=== PATIENT | female | born 1965 | race Caucasian/White ===

== ENCOUNTER → 2019-03-25 10:01 | Outpatient (CLI) | payer OTHER, SELFPAY ==
[2019-03-25 10:31] LABS: Hematocrit 43.7 % (36-46); Hemoglobin 14.4 g/dL (12.0-16.0); Mean Corpuscular HGB Conc 32.9 % (30-36); Mean Corpuscular Hemoglobin 29.9 PG (26-34); Platelet Count 284 X10^3/uL (150-400); Red Cell Distribution Width 13.7 % (11.6-14.8); White Blood Cell Count 6.7 X10^3/uL (4.5-11.0)
[2019-03-25 11:04] LABS: BUN Creatinine Ratio 26.7 (6-22); Blood Urea Nitrogen 16 mg/dL (7-17); Calcium 10.2 mg/dL (8.4-10.2); Carbon Dioxide 30 mmol/L (22-32); Chloride 102 mmol/L (98-107); Estimated Glomerular Filt Rate > 60.0 mL/min (>60); Glucose 102 mg/dL (70-100); HEMOLYSIS < 15 (0-50); Sodium 140 mmol/L (137-145)
== END ==
PROVIDERS: PCP Family Medicine; Visit Provider Orthopaedic Surgery
DX: Z01.818 Encounter for other preprocedural examination (principal)
CPT/HCPCS: 36415; 80048; 85027; 93005

== ENCOUNTER 2019-04-27 11:09 | Inpatient (IN) | payer OTHER, SELFPAY ==
[2019-04-20 10:01] VITALS: BMI 42.7
[2019-04-27] VITALS (15 sets, daily range): BP systolic 102–125; BP diastolic 57–83; PULSE 72–89; RESP 10–16; TEMP 35.9–37.2; O2SAT 94–97; BMI 41.4
--- NOTE | 2019-04-27 | DI.RAD.S_ITS ---
PROCEDURE: XR LUMBAR SPINE 2-3V INDICATIONS: L5-S1 Laminectomy and instrumented fusion bone graft TECHNIQUE: 2 views of the lumbar spine were acquired. COMPARISON: None. FINDINGS: Bones: Postoperative appearance is documented by digital acquisition imaging. Posterior transverse pedicle screws and 2 vertical fixation rods are seen supplemented with intervertebral disc cage prosthesis, spanning the L5-S1 level of the lumbosacral spine. Soft tissues: Overlying bowel gas pattern is normal. No suspicious soft tissue calcifications. IMPRESSION: Normal postoperative alignment after posterior fusion and interbody disc cage prosthesis. Dictated by: Daniele Tejeda M.D. on 04/27/2019 at 16:27 Approved by: Daniele Tejeda M.D. on 04/27/2019 at 16:28
[2019-04-27] MEDS: LACTATED RINGERS 1,000 ML 42 ML IV ×2 (11:52→15:49)
--- NOTE | 2019-04-27 12:02 | SUR.PREOP ---
pt. has what appears to be a heat rash on mid center back, denies any symptoms.
--- NOTE | 2019-04-27 12:04 | PM.PREOP ---
Pre-operative Note Interval Note History & Physical reviewed/Exam performed by Physician: Yes Changes to H&P: No
--- NOTE | 2019-04-27 12:15 | P.OP_ITS ---
Operative Date/Time/Diagnoses Date of procedure: 04/27/19 Time of procedure: 15:56 Pre-op diagnosis: Lumbar stenosis with radiculopathy Morbid obesity with BMI greater than 40 Post-op diagnosis: same Procedure & Clinicians Procedure: L5S1 TLIF (post/post innerbody fusion) with cage L5S1 laminectomy L5S1 screws icbg microscope Same procedure as scheduled: Yes Indications: [age] year old female with intractable pain from lumbar stenosis. They had failed conservative management and requested operative intervention. Risks and benefits of surgery were discussed and appropriate consents were obtained. Surgeon: Johnnie Salazar Mine Exploration Engineer: Norma Ahumada Anesthesia Type: General Operative Notes Findings: None Closure Type: primary Specimen(s): none sent Prosthetic devices, grafts, tissues, transplants, or devices: NuVasive MAS Reline screws Globus Rise cage Applied: catheter Estimated Blood Loss (mL): 20 Blood products transfused: none Procedure in detail: The patient was brought to the operating room and intubated on the table. A time-out was performed. They were then rolled over to the well- padded Niko table in the prone position. Preoperative antibiotics were given. The back was prepped and draped in the standard sterile fashion. Using fluoroscopy, a 4 cm longitudinal incision was made to the left of the midline. We used Bovie to come down to and split the lumbodorsal fascia. Using fluoroscopy and monitoring, we then percutaneously placed Jamshidi needles down the pedicles of L5 and S1 on the left side. These were changed out to guidewires and then we tapped and then placed the NuVasive MAS Reline screw shanks. We then opened up the retractors and used Bovie to clear up the posterolateral gutter as well as medially along the lamina to the spinous processes. A bur was used to decorticate the transverse processes. We brought in the microscope. Using a combination of bur and Kerrison rongeurs, a laminectomy was performed from the left side. We cleared over past the midline and carefully depressed the dura until we were able to decompress the opposite side. We cleared out the neural foramen, requiring facetectomy. This completed the laminectomy at L5-S1. This was separate and distinct from the TLIF approach as we were decompressing the canal and the nerves. We then began the TLIF prep. A complete facetectomy was performed on this side at L5-S1. We carefully cleaned up the remainder of the foramen until we could easily retract the exiting root as well as clearing medially below the dura and expose the disc space. The disc was prepped with bipolar and then an annulotomy was performed. We performed a diskectomy using a combination of paddles, jerri, pituitaries, and curettes. We distracted the disc using a paddle and locked the retractor in an open position. We then filled the disc space with Osteocel bone graft. We then placed the globus Rise cage under fluoroscopy and then filled this in with more bone graft. The distraction on the retractor was released to compress down. This completed the posterior interbody fusion portion of the TLIF at L5-S1. We then placed the screw heads, kofi, and locked down the set screws. The wound was copiously irrigated. A small stab incision was made over the PSIS. We used a Jamshidi needle to aspirate several mL of bone marrow from the pelvis. This was mixed with the remaining Osteocel and combined with all of the locally harvested bone graft and placed in the posterolateral gutter for the posterior fusion of the TLIF at L5- S1. We then went to the opposite side. Again using fluoroscopy, a 3 cm incision was made and Bovie was used to come down to split the fascia. Using neural monitoring and fluoroscopy, Jamshidi needles were advanced down the pedicles of L5 and S1 on the right side. These were switched over guidewires, tapped, and screws placed. We then placed a kofi and locked the set screws on this side. The wound was irrigated. The fascia was closed. Vancomycin powder was placed in the wounds. The superficial and skin were closed. A sterile dressing was placed. The patient was then rolled over extubated and brought to recovery room without complications. Please note that there is increased complexity due to the patient's morbid obesity. We were using 90 mm retractor blades which greatly limited our ability to manipulate through the retractor system as well as greatly increased radiation to be able to visualize and much more complexity trying to place the screws. This added a good 45-60 minutes additional time as well as complexity. Complications: none Condition: stable Disposition: PACU Plan for aftercare: Inpatient. Up with physical therapy.
--- NOTE | 2019-04-27 12:37 | SUR.OPER ---
Prone on spine table, head in foam head support, padded chest and pelvic supports, gel pad at knees, lower legs supported by pillows; nipples, genitalia and toes free of pressure, arms secured on foam padded arm boards at <90 degrees abduction. Tape over blanket at thigh secured to table.
[2019-04-27] MEDS: CEFAZOLIN VIAL 3 GM in SODIUM CHLORIDE 0.9% 100 ML 200 ML IV (12:55)
[2019-04-27] MEDS: VANCOMYCIN 1,000 MG VIAL 1000 MG TOP (14:02)
[2019-04-27] MEDS: SODIUM CHLORIDE 0.9% 1,000 ML, GENTAMICIN 80 MG IRR (14:03)
[2019-04-27] MEDS: THROMBIN (RECOMBINANT) 5,000 UNIT VIAL 5000 UNIT TOP (14:05)
[2019-04-27] MEDS: BUPIVACAINE 0.5% (PF) 20 ML, BUPIVACAINE LIPOSOME 266 MG INJ (15:34)
[2019-04-27] MEDS: HYDROMORPHONE 2 MG INJ 0.5 MG IV (16:28)
--- NOTE | 2019-04-27 16:40 | SUR.PHASEI ---
Stable PACU stay, pt arrived awake, c/o small amount of pain, pain meds given when pt turned on side to access dressing.
[2019-04-27] MEDS: LACTATED RINGERS 1,000 ML 125 ML IV (17:51)
[2019-04-27] MEDS: CELECOXIB 200 MG CAPSULE 400 MG PO (17:51)
[2019-04-27] MEDS: hydroCHLOROthiazide 25 MG TABLET PO (17:52)
[2019-04-27] MEDS: LISINOPRIL 20 MG TABLET PO (17:52)
[2019-04-27] MEDS: CEFAZOLIN 2 GM/100 ML FROZ.PIGGY IV (19:19)
[2019-04-27] MEDS: levETIRAcetam 250 MG TABLET 500 MG PO (20:53)
[2019-04-27] MEDS: HYDROCODONE/ACET 5/325 TABLET 1 TAB PO (20:54)
[2019-04-27] MEDS: PHENYTOIN ER 100 MG CAPSULE 300 MG PO (20:54)
[2019-04-27] MEDS: SENNOSIDES 8.6 MG TABLET 17.2 MG PO (20:54)
[2019-04-27] MEDS: DOCUSATE 100 MG CAPSULE PO (20:54)
[2019-04-27] MEDS: CELECOXIB 200 MG CAPSULE PO (20:54)
--- NOTE | 2019-04-27 22:50 | PC.NURSE ---
Pt post op back surgery without any issues. VSS. Awake and alert. Salcedo draining clear yellow urine. Gauze dressing on lower back clean dry and intact. Scds in place.
--- NOTE | 2019-04-28 00:09 | PC.NURSE ---
Addendum entered by Dian Michelle R.N. 04/28/19 06:32: Complains now of 5/10 back pain; medicated with Vicodin. Addendum entered by Dian Michelle R.N. 04/28/19 05:11: Slept at intervals. Repositioned onto back 2h ago and now declines to turn stating she is comfortable. States pain is 3/10 but declines offer of pain medication. Original Note: Patient is alert and oriented. Breath sounds diminished but CTA with RA sat of 94%. HRR. Denies nausea. BT present but denies flatus. Indwelling catheter is patent. Able to assist to reposition onto side. Has rash on mid back which she states was present pre-op and denies itching. Dressing to back is CDI; steristrip to left lower corner of dressing with small amount of bright red blood. At shift change stated pain was a dull ache at incisional area but now feels good after repositioning onto side. CMS is intact although has chronic numbness in left LE to knee. Wearing bilateral foot SCD's. Fall risk score is moderate; bed alarm is activated. Has not yet been out of bed since return from surgery.
[2019-04-28] MEDS: LACTATED RINGERS 1,000 ML 125 ML IV (01:42)
[2019-04-28] MEDS: CEFAZOLIN 2 GM/100 ML FROZ.PIGGY IV (02:45)
[2019-04-28 05:09] VITALS: BP 101/50; PULSE 78; RESP 17; TEMP 37; O2SAT 96
[2019-04-28] MEDS: HYDROCODONE/ACET 5/325 TABLET 1 TAB PO ×3 (06:26→18:41)
[2019-04-28 06:36] LABS: Hematocrit 39.5 % (36-46); Hemoglobin 13.2 g/dL (12.0-16.0)
--- NOTE | 2019-04-28 07:52 | PM.PNPO.1 ---
Subjective Date Patient Seen: 04/28/19 Time Patient Seen: 07:53 Interval history: She is doing well. Pain 2/10 at rest. No more hip or leg pain. Exam Vital Signs (past 8 hours): - 04/28/19 05:09 Temperature 98.6 F Pulse Rate 78 Respiratory Rate 17 Blood Pressure 101/50 L Pulse Oximetry 96 Oxygen Delivery Method Room Air Oxygen Flow Rate 0 Const Orientation: alert and oriented x3 Back/Spine/Pelvis Other: CDI. 5/5 motor both lower extremities. Objective Labs Result Diagrams: 04/28/19 06:22 Labs: Laboratory Results - last 24 hr 04/28/19 06:22 Hgb 13.2 Hct 39.5 Assessment & Plan Post-op Postoperative Procedures Operation Date: 04/27/19 13:15 Actual Procedures Side Surgeon p L5S1 laminectomy and instrumented fusion bone graft Johnnie Salazar MD Overall she is doing very well. Mobilize with therapy. Anticipate discharge home in the next 1-2 days. Quality VTE Deep Vein Thrombosis/Pulmonary Embolism Present on Admission: No
[2019-04-28 09:20] VITALS: BP 99/57; PULSE 84; RESP 19; TEMP 36.7; O2SAT 95
[2019-04-28] MEDS: PHENYTOIN ER 100 MG CAPSULE 300 MG PO ×2 (09:22→21:04)
[2019-04-28] MEDS: DOCUSATE 100 MG CAPSULE PO ×2 (09:22→21:04)
[2019-04-28] MEDS: CELECOXIB 200 MG CAPSULE PO ×2 (09:22→21:04)
[2019-04-28] MEDS: levETIRAcetam 250 MG TABLET 500 MG PO ×2 (09:22→21:04)
[2019-04-28] MEDS: SODIUM CHLORIDE 0.9% FLUSH 10 ML IV ×2 (09:23→21:04)
--- NOTE | 2019-04-28 10:17 | OT.IP.EVAL ---
Current Diagnoses Morbid (severe) obesity due to excess calories (04/27/19) Spinal stenosis, lumbar region with neurogenic claudication (04/27/19) Strain of muscle, fascia and tendon of lower back, subsequent encounter (04/27/19) Surgery Performed Operation Date: 04/27/19 13:15 Actual Procedures p L5S1 laminectomy and instrumented fusion bone graft - Johnnie Salazar MD Past Medical History (Last Updated 04/20/19 @ 10:23 by Alyx Cabrera RN) Arthritis (Acute) BCC (basal cell carcinoma) (Acute) Brain aneurysm (Acute ~05/2003) HTN (hypertension) (Acute) Left hip pain (Acute) Seizures (Acute) Stroke (Acute ~2002) Thyroid cyst (Acute ~03/2019) Surgical History (Last Updated 04/20/19 @ 10:23 by Alyx Cabrera RN) H/O right wrist surgery (Acute) History of (Acute) History of bilateral tubal ligation (Acute) History of right cataract extraction (Acute ~09/2017) Hx of craniotomy (Acute ~06/2003) Occupational Therapy Inpatient Evaluation/Re-Eval M1 PT/OT-IP Prior Functional Status Start: 04/28/19 08:13 Freq: NEEDED Status: Active Protocol: Document 04/28/19 10:17 MARIA VICTORIA (Rec: 04/28/19 16:34 MARIA VICTORIA [id number]) Medical Review Prior Functional Status Medical History Reviewed Yes Diet/Fluid Consistency Regular Communication WNL Mobility and Gait Pt independent with mobility at home and in community without a device. She report constant soreness in low back and LLE weakness, as well as difficulty with climbing stairs. She was able to do gardening 1x/week. Activities of Daily Living and IADL's Pt independent with ADLs, IADLS, drives. No DME used. Prior Functional Level (Other details) Spouse is retired and can provide 24 hr assist at d/c. Son also home from college until May 3. Social History Household Members spouse children Living Arrangements House Number of Floors (Floors) One Floor Number of Stairs To Enter/Railing? 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 , she can use plastic lawn chair in shower if needed M2 OT-IP Current Condition Start: 04/28/19 16:18 Freq: Status: Active Protocol: Document 04/28/19 10:17 PJM (Rec: 04/28/19 16:34 PJM [id number]) Occupational Therapy Current Condition Current Condition Evaluation Date 04/28/19 Treatment Diagnosis decreased kota care, mobility s /p L5-S1 TLIF Diagnosis Onset Date 04/27/19 Post Operative Precautions Lumbar Precautions Log Roll No Twisting Limit Bending Lifting Restriction of 10 lbs Gait Belt above Incisional Area M3 OT- IP Subjective and Pain Start: 04/28/19 16:18 Freq: Status: Active Protocol: Document 04/28/19 10:17 PJM (Rec: 04/28/19 16:34 PJM [id number]) OT- Subjective Occupational Therapy Visit Type Type Initial Evaluation Visit Start Time 10:42 Visit Stop Time 10:17 Total Visit Minutes 35 Occupational Therapy Visit Comments Patient Comments I feel okay today. Patient/Caregiver Goals to return to work in May OT Pain Assessment Pain When Pain Assessed After Treatment Pain Present Pain Present Pain Reported Location Lower Back Intensity 4 Scale Used Numeric (1 - 10) Description Aching Acute Pain Behaviors Guarding Management Techniques Distraction Timing of Activity with Medications M4 OT- IP ADL's Start: 04/28/19 16:18 Freq: Status: Active Protocol: Document 04/28/19 10:17 PJM (Rec: 04/28/19 16:34 PJ [id number]) OT [id number] General Evaluation Self-Feeding Ability Independent OT ADL-Grooming General Evaluation Grooming Ability Independent Comments OT Grooming Comments after set up in chair OT ADL-Oral Care General Eval Oral Care Ability Standby Assistance Comments Oral Care Comments after set up in chair OT ADL-Dressing General Eval Lower Body Dressing Ability Maximum Assistance Areas Needing Assistance Pants/Shorts Socks Shoes Comments OT Dressing Comments began education re: adapted ADL techniques, pt plans to wear sun dresses, does not wear socks so declines sock aid, will wear slip on shoes OT ADL-Toileting Comments OT Toileting Comments did not occur this session, just got turner out, provided education re: body mechanics OT ADL-Bathing Devices Bathing Equipment Long Handled Sponge or [place] Shower Chair with Arms Comments OT Bathing Comments to be assessed as activity [place]rance improves, provided education re: body mechanics, pt will obtain long bath sponge M5 OT- IP IADL's Start: 04/28/19 16:18 Freq: Status: Active Protocol: Document 04/28/19 10:17 PJM (Rec: 04/28/19 16:34 PJ [id number]) OT-Instrumental Activities of Daily Living Deficits IADL Deficits Identified Deficits Home Safety Awareness Awareness of Need for Assistance at Home Good Awareness Ability to Problem Solve Emergency Able to Problem Solve Situations Medication Management Medication Management No Deficits Identified Money Management Money Management No Deficits Identified Meal Preparation Meal Preparation Caregiver Provides Assist Meal Preparation Comments family to assist until pt able 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 Caregiver Provides Assist 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 Comments family to assist until pt able Driving Driving Caregiver Provides Assist Driving Comments family to assist until pt able M6 OT- IP Functional Cognition Start: 04/28/19 16:18 Freq: Status: Active Protocol: Document 04/28/19 10:17 PJM (Rec: 04/28/19 16:34 [email or web address] [id number]) Cognitive Factors Limiting Selfcare Function Cognitive Ability Level of Alertness Alert Attention Span Ability Capable of Focused Attention Capable of Sustained Attention Ability to Follow Commands Able to Follow One Step Commands Able to Follow Multi-Step Commands Memory Description No Deficits Noted Safety Awareness No Deficits Noted Executive Function Ability No Deficits Noted Abstract Thinking Ability No Deficits Noted OT- Vision and Hearing OT- Hearing Assessment OT- Hearing Assessment WFL OT- Vision Assessment Visual Acuity Contact Lenses Vision Assessment Comments Pt denies any recent vision changes. M7 OT- IP Mobility and Balance Start: 04/28/19 16:18 Freq: Status: Active Protocol: Document 04/28/19 10:17 PJM (Rec: 04/28/19 16:34 [id number]) OT-Transfer Assessment Comments Mobility Comments See P.T. notes, pt seen up in recliner this session M8 OT- IP Objective Assessments Start: 04/28/19 16:18 Freq: Status: Active Protocol: Document 04/28/19 10:17 PJM (Rec: 04/28/19 16:34 PJ [id number]) OT Gross Range of Motion Upper Extremity Range of Motion Assessment Within Functional Limits OT Strength Upper Extremity Strength Assessment Within Functional Limits OT- Coordination Assessment Comments Coordination Comments BUE WFL OT-Muscle Tone Assessment Muscle Tone WNL Yes OT Sensation Assessment Comments Summary Comments BUE WNL per pt Edema Edema Absent M9 OT- IP Assessment and Plan Start: 04/28/19 16:18 Freq: Status: Active Protocol: Document 04/28/19 10:17 PJM (Rec: 04/28/19 16:34 PJM [id number]) OT Summary Assessment and Plan Potential Rehabilitation Potential Excellent Analytic Complexity at Evaluation Low Summary OT Impairments Pain Functional Mobility Grooming Dressing Toileting Bathing Toilet Transfers Shower Transfers Assessment Summary Low complexity OT assessment completed on this 53 yr old female admitted for elective L5-S1 TLIF. Pt currently has mild performance deficits in functional mobility/transfers, standing grooming, lower body dressing, bathing and toileting. 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 Plan one additional OT visit to address goals below. Anticipate pt will d/c home with supportive and son when medically stable and clears P.T. Goals Grooming Goal Independent Dressing Goal Independent Top Polisher Toileting Goal Independent Bathing Goal Standby Assistance Toilet Transfer Goal Independent Shower Transfer Goal Standby Assistance Patient/Caregiver Education Goal Demonstrate Post-Op Precautions Demonstrate Energy Conservation and Pacing Caregiver Independent Assisting Patient OT-Other Goals Grooming to be done standing at sink with good body mechanics. Days to Meet Goals 1 Frequency of Treatment Frequency Of Treatment Once a Day Treatment Plan OT Treatment Plan ADL Training Functional Mobility Patient/Family Education Discharge Planning Discharge Recommendations OT Discharge Recommendations Home with Assistance Home Equipment Needs long bath sponge
--- NOTE | 2019-04-28 11:08 | PT.IIE ---
Current Diagnoses Morbid (severe) obesity due to excess calories (04/27/19) Spinal stenosis, lumbar region with neurogenic claudication (04/27/19) Strain of muscle, fascia and tendon of lower back, subsequent encounter (04/27/19) Surgery Performed Operation Date: 04/27/19 13:15 Actual Procedures p L5S1 laminectomy and instrumented fusion bone graft - Johnnie Salazar MD Surgical History (Last Updated 04/20/19 @ 10:23 by Alyx Cabrera RN) H/O right wrist surgery (Acute) History of (Acute) History of bilateral tubal ligation (Acute) History of right cataract extraction (Acute ~09/2017) Hx of craniotomy (Acute ~06/2003) Medical History (Last Updated 04/20/19 @ 10:23 by Alyx Cabrera RN) Arthritis (Acute) BCC (basal cell carcinoma) (Acute) Brain aneurysm (Acute ~05/2003) HTN (hypertension) (Acute) Left hip pain (Acute) Seizures (Acute) Stroke (Acute ~2002) Thyroid cyst (Acute ~03/2019) Physical Therapy Inpatient Evaluation/Re-Eval M1 PT/OT-IP Prior Functional Status Start: 04/28/19 08:13 Freq: NEEDED Status: Active Protocol: Document 04/28/19 08:35 (Rec: 04/28/19 11:07 [id number]) Medical Review Prior Functional Status Medical History Reviewed Yes Diet/Fluid Consistency Regular Communication No deficits noted. Able to make needs known Mobility and Gait Independent with mobility at home and community without UE. c/o constant soreness and LLE weakness who has difficulty with stair negotiation. She was able to do gardening 1x/ week. She also drives. Activities of Daily Living and IADL's independent with ADLs and IADLs without AD. Pt states she could use a patio chair for showering if needed. Social History Household Members spouse children Living Arrangements House Number of Floors (Floors) One Floor Number of Stairs To Enter/Railing? 2 RANDAL without rails Home Environment Standard Height Toilet Walk in Shower Home Equipment Front Wheel Walker Straight Cane Grab Bars In Shower Employment Status Retired Additional Social History Comment pt lives with Silvestre ( retired) and her son (will stay until May) in [place]. 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 M2 PT-IP Current Condition Start: 04/28/19 08:13 Freq: NEEDED Status: Active Protocol: Document 04/28/19 08:35 HH (Rec: 04/28/19 11:07 [id number]) Physical Therapy Current Condition Current Condition Evaluation Date 04/28/19 Treatment Diagnosis L5-S1 TLIF, difficulty in wlaking Onset Date 04/27/19 Precautions Lumbar Precautions Log Roll No Twisting Limit Bending Lifting Restriction of 10 lbs Gait Belt above Incisional Area Weight Bearing Status Weight Bearing Status Weight Bear as Tolerated M3 PT-IP Subjective Start: 04/28/19 08:13 Freq: NEEDED Status: Active Protocol: Document 04/28/19 08:35 HH (Rec: 04/28/19 11:07 [id number]) Subjective Physical Therapy Visit Type Type Initial Evaluation Visit Start Time 08:35 Visit Stop Time 09:15 Total Visit Minutes 40 Number of CREW ATTENDANT Visits 0 Physical Therapy Visit Comments Patient Comments Pt agreeable to mobilize with PT Patient Goals To return home with family Therapy Pain Assessment Pain When Pain Assessed During Mobility Pain Present Pain Present Pain Reported Location Lower Back Intensity 3 Scale Used Numeric (1 - 10) Description Acute Pain Management Techniques Timing of Activity with Medications M4 PT-IP Mobility and Gait Start: 04/28/19 08:13 Freq: NEEDED Status: Active Protocol: Document 04/28/19 08:35 HH (Rec: 04/28/19 11:07 [id number]) PT-Bed Mobility Assessment Rolling Type of Rolling Log Rolling Roll to Left Level of Assist Minimal Assistance 1 Person Assistance Supine to Sit Supine to Sit Moderate Assistance 1 Person Assistance Bedrails Scooting Scooting to Edge of Bed Moderate Assistance PT-Transfer Assessment Sit to and From Stand Sit to and from Stand Minimal Assistance Use of Upper Extremities Equipment Transfer Assistive Device Gait Belt Front Wheeled Walker Orthotic/Prosthetic Devices or Brace: No Transfers Transfer Destination Bed Chair Transfer Technique Stand Step Pivot Transfer Ability Level of Assist Minimal Assistance Use of Upper Extremities Comments Mobility Comments Pt was in bed upon assessment. Denies pain and discomfort. She was able to recall all 3/3 precautions. Educated pt log roll method for bed mobility. Pt required overall mod A ( used bed pad) from sidelying to sit and scooting towards EOB. Needed cues for lateral weight shift to reach her feet on ground. She was able to stand up from EOB with min A and FWW but slowly. Needed cues for hand placements for support. Gait Assessment Gait Gait Assistance Required: Standby Assistance Distance (Feet) 200 Able to Maintain Weight Bearing Status No During Gait Assistive Devices Assistive Device Gait Belt Front Wheeled Walker Orthotic/Prosthetic Devices or Brace: No Gait Deviations General Gait Pattern Decreased Stride Length Decreased Feet Clearance Factors Limiting Gait Function Factors Limiting Gait Function Decreased Activity Tolerance Decreased Strength Pain Comments Gait Comments Pt amb from EOB to hallway and returned to bedside chair for approx 200 ft with FWW SBA. Pt denies weakness and felt both legs are equally good. Pt reports reduce in back pain during mobility but increase during bed mobility and transfers. PT-Balance Assessment Sitting Balance and Reactions Static Sitting Balance Ability Normal Dynamic Sitting Balance Ability Normal Standing Balance and Reactions Static Standing Balance Ability Good Dynamic Standing Balance Ability Good Device Used FWW M5 PT-IP Objective Assessments Start: 04/28/19 08:13 Freq: NEEDED Status: Active Protocol: Document 04/28/19 08:35 (Rec: 04/28/19 11:07 [id number]) Orientation Orientation/Cognition Level of Alertness Alert Orientation Name Age Birthday Month Date Year Day of Week Place Situation Language Function Ability No Deficits Noted Safety Awareness Understands Safety Issues Memory Description No Deficits Noted Gross Range of Motion Upper Extremity ROM Assessment Within Functional Limits Lower Extremity ROM Assessment Within Functional Limits Strength Upper Extremity Strength Assessment Within Functional Limits Comments Strength Comments 4/5 both LEs Coordination Assessment Gross Coordination Gross Coordination WNL Sensation Assessment Sensation Gross Sensation Left LE Impaired Light Touch Impaired Sensation Description Numbness Comments Sensation Comments numbness reported on L anterior quiroz and dorsum of the foot. Muscle Tone Muscle Tone WNL Yes M6 PT-IP Treatment Start: 04/28/19 08:13 Freq: NEEDED Status: Active Protocol: Document 04/28/19 08:35 (Rec: 04/28/19 11:07 [id number]) Physical Therapy Treatment Exercises Exercises Quad Sets Education Education Provided Precautions Weight Bearing Status Post-Op Packet Safety M7 PT-IP Assessment and Plan Start: 04/28/19 08:13 Freq: NEEDED Status: Active Protocol: Document 04/28/19 08:35 (Rec: 04/28/19 11:07 [id number]) PT Summary Assessment and Plan Potential Rehabilitation Potential Excellent Status of Condition at Evaluation Stable Summary Impairments Pain ROM Strength Balance Bed Mobility Transfers Gait Activity Tolerance Assessment Summary Pt is a low complexity who is s/p L5-S1 TLIF POD #2. Upon assessment, pt presents difficulty in bed mobility and transfers who requires overall mod A x 1. She primarily needed cues and physical assistance for getting from sidelying to sitting position. Family training will be needed and pt will have to clear rehab goals prior to d/c home with family's assistance(able to clear 2 steps without railings ). Goals Bed Mobility Goal Standby Assistance Transfer Goal Standby Assistance Front Wheeled Walker Gait Goal Standby Assistance Front Wheel Walker Gait Distance 500 Other Goals to clear 2 steps without railings SBA Days to Meet Goals 5 Frequency of Treatment Frequency Of Treatment Twice a Day Treatment Plan Physical Therapy Treatment Plan Bed Mobility Training Transfer Training Gait Training Therapeutic Exercise Balance Retraining Post Op Education Discharge Planning Hot or Cold Pack Neuromuscular Re-ed Other Recommendations and Next Treatment log, supine to sit Focus transfers training and gait training as hilda stair training if possible Recommendations To Nursing Amount of Assist Needed 1 Person Assist Discharge Recommendations PT Discharge Recommendations Home with Assistance
[2019-04-28 13:16] VITALS: BP 102/55; PULSE 90; RESP 20; TEMP 36.8; O2SAT 96
--- NOTE | 2019-04-28 14:06 | CM.DANOTE ---
Addendum entered by Elina Burden LPN 04/28/19 14:39: Met now with pt and introduced self and role. Pt reports she is very pleased thus far with results of her surgery and that she had done well with PT and OT today. 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 Dr. Salazar said I should be fine by then. She has a FWW that is borrowed and a sp cane. Pt has her who is retired able to provide any supportive assist needed as well as her 18 year old son who does work but will be home in the evening and can also assist prn. P: will continue therapy. Dr. Salazar expects d/c to home setting in next one to two days. Will follow prn. Addendum entered by Elina Burden LPN 04/28/19 14:17: Discussed case in Team Rounds: PT and OT were pending. Pt is a 53 year old female who admitted yesterday for a planned spinal surgery: Surgeon: Dr. Mota. Admission status: INPT: confirmed by JONI Campbell. Payer: [employer] Initial clinical [facility]: INPT # with receipt of fax: 12 pages: 04/28/19 1:50 PM. As per discussion with JONI Campbell: will place in scan folder for [facility]sp to process and also copy to CMsp box for followup. Original Note: Discharge Planning/Care Management DCP: assessment: case received, EMR reviewed. Discharge Assessment Start: 04/28/19 14:04 Freq: Status: Active Protocol: Document 04/28/19 14:05 ITV (Rec: 04/28/19 14:06 ITV [id number]) Discharge Planning Assessment Advance Directives? No: declines further information History Provided By Patient Family Member Medical Record Prior Living Arrangements House Household Members spouse children Whiteboard Updated in Patient Room with Yes name and ext. # of Drafter Marine Review Status In Process Pre-Anesthesia Assessment Start: 04/20/19 10:01 Freq: Status: Complete Protocol: Document 04/20/19 10:01 CAB (Rec: 04/20/19 10:40 CAB [id number]) Pre-Anesthesia Assessment Patient Information Reviewed Via Phone Assessment Assessment Completed With Patient Diagnostic Results BMP/CMP CBC EKG Comment Labs/EKG @ [facility] 03/25/19 Primary Care Provider Jazmin Santoyo Seen Specialist in Last 12 Months Yes Specialist Seen ENT Orthopedist Primary Language Luxembour[place] Orbitread Operator Required No Height 167.64 cm Weight 120.202 kg Body Mass Index (BMI) 42.7 Hearing Ability Normal Visual Assist Contacts Dentition Type Teeth, Natural Present Barriers to Learning None Other Aids No Hx Anesthesia Reactions No Hx Family Anesthesia Reaction No Hx Malignant Hyperthermia No Hx Blood Transfusions No Anesthesia Review Requested No 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 No Does patient have [place]/SOB No Hx Sleep Apnea No Currently Taking a Beta Hair No Can You Climb a Flight of Stairs Without Yes SOB Hx Chest Pain No Hx SOB No Hx Syncope or Dizziness No Anti-Coagulant Therapy No Has a Craft Artist No Cardiac Testing No Hx Pacemaker/ICD No Pacemaker Rep Required? No Cardiac Clearance Received Not Applicable dysphagia No Urinary Catheter Present No Hx Urinary Self Catheterization No Diabetes No Patient No Lactating No Hx Drug Resistant Organism No Presence of External or Internal Medical Yes: Brain clippings, right Devices eye lens Have you traveled outside the [facility] States in the last 30 days? Marital Status Lives With spouse children Prior Living Arrangements House Number of Floors (Floors) One Floor Support System Spouse Does the Patient Have Assistance After Yes Surgery Patient Discharge Plan Description Return Home Comment Pt advised up to 3 day length of stay per surgeon's office Feels Safe in Current Environment Yes Been Physically Hurt or Threatened By a No Person in Current Environment Do you have thoughts of harming yourself None or others? Are you currently considering suicide? No Do you have a plan to hurt yourself or No Plan others? Do You Have Any Spiritual Beliefs That No May Affect Your HC Choices? Do You Have Any Cultural Practices That No May Affect Your HC Choices? Who Can We Speak to About Patient's Care Family only Identifying Code for Release of Patient Declines to issue Information Health Care Proxy/Next of Kin Silvestre () Health Care Proxy Emergency Contact Name Silvestre () Emergency Contact Advance Directives? No: declines further information Power of Enrichment Assistant No PAC Instructions Durable medical equipment Medications to take/avoid Nasal antibiotic NPO Post-op transportation Pre-surgical wash Sturdy shoes/comfortable clothes Do not bring valuables and remove jewelry
--- NOTE | 2019-04-28 15:37 | PC.NURSE ---
Day Shift- Pain to lower back controlled at 4-5/10 with prn Hyndman. Pain is aching to lower back and not radiating to LLE as was prior to surgery. Lower back gauze and tegaderm dressing intact with serous drainage marked by this medical writer to left side of dressing approx 30% of dressing. CMS+, PPP. OOB with 1PA using walker and gait belt. Pt finding difficulty moving from lying to sitting position. Steady gait with ambulation. Urinary catheter removed at 0935 without difficulty. Bladder scanned at 1125 for approx 330mls. Pt voided at 1315 500mls.
--- NOTE | 2019-04-28 15:45 | PT.IPTN ---
Current Diagnoses Morbid (severe) obesity due to excess calories (04/27/19) Spinal stenosis, lumbar region with neurogenic claudication (04/27/19) Strain of muscle, fascia and tendon of lower back, subsequent encounter (04/27/19) Surgery Performed Operation Date: 04/27/19 13:15 Actual Procedures p L5S1 laminectomy and instrumented fusion bone graft - Johnnie Salazar MD Physical Therapy Treatment Note M2 PT-IP Current Condition Start: 04/28/19 08:13 Freq: NEEDED Status: Active Protocol: Document 04/28/19 08:35 HH (Rec: 04/28/19 11:07 HH [id number]) Physical Therapy Current Condition Current Condition Evaluation Date 04/28/19 Treatment Diagnosis L5-S1 TLIF, difficulty in wlaking Onset Date 04/27/19 Precautions Lumbar Precautions Log Roll No Twisting Limit Bending Lifting Restriction of 10 lbs Gait Belt above Incisional Area Weight Bearing Status Weight Bearing Status Weight Bear as Tolerated M3 PT-IP Subjective Start: 04/28/19 08:13 Freq: NEEDED Status: Active Protocol: Document 04/28/19 15:40 GGD (Rec: 04/28/19 16:25 GGD [id number]) Subjective Physical Therapy Visit Type Type Treatment Note Visit Start Time 15:10 Visit Stop Time 15:44 Total Visit Minutes 34 Number of VALET SERVICE ATTENDANT Visits 1 Physical Therapy Visit Comments Patient Comments Pt states she been up a lot. Therapy Pain Assessment Pain When Pain Assessed During Mobility Pain Present Pain Present Pain Reported Location Lower Back Intensity 3 Scale Used Numeric (1 - 10) Pain Management Techniques Timing of Activity with Medications M4 PT-IP Mobility and Gait Start: 04/28/19 08:13 Freq: NEEDED Status: Active Protocol: Document 04/28/19 15:40 GGD (Rec: 04/28/19 16:25 GGD [id number]) PT-Bed Mobility Assessment Rolling Type of Rolling Log Rolling Roll to Left Level of Assist Standby Assistance 1 Person Assistance Supine to Sit Supine to Sit Contact Guard Assistance 1 Person Assistance Bedrails Sit to Supine Sit to Supine Minimal Assistance 1 Person Assistance Bedrails Scooting Scooting to Edge of Bed Contact Guard Assistance PT-Transfer Assessment Sit to and From Stand Sit to and from Stand Contact Guard Assistance 1 Person Assistance Use of Upper Extremities Equipment Transfer Assistive Device Gait Belt Front Wheeled Walker Orthotic/Prosthetic Devices or Brace: No Transfers Transfer Destination Bed Toilet Transfer Ability Level of Assist Contact Guard Assistance 1 Person Assistance Gait Assessment Gait Gait Assistance Required: Standby Assistance Distance (Feet) 250 Able to Maintain Weight Bearing Status No During Gait Assistive Devices Assistive Device Gait Belt Front Wheeled Walker Orthotic/Prosthetic Devices or Brace: No Gait Deviations General Gait Pattern Decreased Stride Length Decreased Feet Clearance Factors Limiting Gait Function Factors Limiting Gait Function Decreased Activity Tolerance Decreased Strength Pain M5 PT-IP Objective Assessments Start: 04/28/19 08:13 Freq: NEEDED Status: Active Protocol: Document 04/28/19 08:35 HH (Rec: 04/28/19 11:07 HH [id number]) Orientation Orientation/Cognition Level of Alertness Alert Orientation Name Age Birthday Month Date Year Day of Week Place Situation Language Function Ability No Deficits Noted Safety Awareness Understands Safety Issues Memory Description No Deficits Noted Gross Range of Motion Upper Extremity ROM Assessment Within Functional Limits Lower Extremity ROM Assessment Within Functional Limits Strength Upper Extremity Strength Assessment Within Functional Limits Comments Strength Comments 4/5 both LEs Coordination Assessment Gross Coordination Gross Coordination WNL Sensation Assessment Sensation Gross Sensation Left LE Impaired Light Touch Impaired Sensation Description Numbness Comments Sensation Comments numbness reported on L anterior quiroz and dorsum of the foot. Muscle Tone Muscle Tone WNL Yes M6 PT-IP Treatment Start: 04/28/19 08:13 Freq: NEEDED Status: Active Protocol: Document 04/28/19 15:40 GGD (Rec: 04/28/19 16:25 GGD [id number]) Physical Therapy Treatment Education Education Provided Precautions M7 PT-IP Assessment and Plan Start: 04/28/19 08:13 Freq: NEEDED Status: Active Protocol: Document 04/28/19 15:40 GGD (Rec: 04/28/19 16:25 GGD [id number]) PT Summary Assessment and Plan Summary Assessment Summary Pt improving with bed mobility . She was able to progress gait distance. She need cues for log roll and sit to stand. She will need stair training before D/C home. Frequency of Treatment Frequency Of Treatment Twice a Day Treatment Plan Physical Therapy Treatment Plan Bed Mobility Training Transfer Training Gait Training Therapeutic Exercise Balance Retraining Post Op Education Discharge Planning Hot or Cold Pack Neuromuscular Re-ed Recommendations To Nursing Amount of Assist Needed 1 Person Assist Discharge Recommendations PT Discharge Recommendations Home with Assistance
[2019-04-28 15:53] VITALS: BP 104/56; PULSE 83; RESP 18; TEMP 36.4; O2SAT 98
--- NOTE | 2019-04-28 18:44 | PC.NURSE ---
Pt ambulated in hallways x 1. pain controlled with norco 1 tab for pain /.
[2019-04-28 20:00] VITALS: BP 111/61; PULSE 81; RESP 18; TEMP 36.1
[2019-04-28] MEDS: SENNOSIDES 8.6 MG TABLET 17.2 MG PO (21:04)
[2019-04-28 23:20] VITALS: BP 113/54; PULSE 82; RESP 19; TEMP 37.2; O2SAT 97
[2019-04-29] MEDS: HYDROCODONE/ACET 5/325 TABLET 1 TAB PO ×3 (00:12→11:12)
--- NOTE | 2019-04-29 00:30 | PC.NURSE ---
Addendum entered by Dian Michelle R.N. 04/29/19 07:05: States pain is again 5/10 and describes as achy; medicated with Vicodin. SCD's reapplied after being up to bathroom. Addendum entered by Dian Michelle R.N. 04/29/19 05:18: Assisted to bathroom and was able to get in/out of bed without any assistance although seems weak and slow with movements. States pain is minimal and declines pain medication. Assisted to turn onto right side with pillows behind back and between knees. Requests SCD's be off at this time. Original Note: Patient is alert and oriented. Breath sounds CTA with RA sat of 97%. HRR. Denies nausea. BT present and is passing flatus. Voiding without dysuria, frequency or urgency following catheter removal yesterday. Still needing some assist to reposition in bed and is up to bathroom with walker and 1 assist; reports still feeling weak and unsteady. Dressing to back with additional shadow drainage; reoutlined. No new drainage on steri strip. Still with rash across back above dressing; denies itching. Does complain of 5/10 pain so medicated with Vicodin; refuses ice pack. CMS is intact except for chronic numbness in left LE. Wearing bilateral foot SCD's. Fall risk score is high and bed alarm is activated.
[2019-04-29 03:02] VITALS: BP 109/56; PULSE 75; RESP 18; TEMP 36.9; O2SAT 95
[2019-04-29 08:00] VITALS: BP 122/63; PULSE 82; RESP 14; TEMP 37.1; O2SAT 96
[2019-04-29] MEDS: PHENYTOIN ER 100 MG CAPSULE 300 MG PO (08:33)
[2019-04-29] MEDS: CELECOXIB 200 MG CAPSULE PO (08:33)
[2019-04-29] MEDS: levETIRAcetam 250 MG TABLET 500 MG PO (08:33)
[2019-04-29] MEDS: hydroCHLOROthiazide 25 MG TABLET PO (08:33)
[2019-04-29] MEDS: LISINOPRIL 20 MG TABLET PO (08:33)
[2019-04-29] MEDS: SODIUM CHLORIDE 0.9% FLUSH 10 ML IV (08:33)
[2019-04-29] MEDS: DOCUSATE 100 MG CAPSULE PO (08:33)
--- NOTE | 2019-04-29 09:30 | PT.IPTN ---
Current Diagnoses Morbid (severe) obesity due to excess calories (04/27/19) Spinal stenosis, lumbar region with neurogenic claudication (04/27/19) Strain of muscle, fascia and tendon of lower back, subsequent encounter (04/27/19) Surgery Performed Operation Date: 04/27/19 13:15 Actual Procedures p L5S1 laminectomy and instrumented fusion bone graft - Johnnie Salazar MD Physical Therapy Treatment Note M2 PT-IP Current Condition Start: 04/28/19 08:13 Freq: NEEDED Status: Active Protocol: Document 04/28/19 08:35 HH (Rec: 04/28/19 11:07 HH [id number]) Physical Therapy Current Condition Current Condition Evaluation Date 04/28/19 Treatment Diagnosis L5-S1 TLIF, difficulty in wlaking Onset Date 04/27/19 Precautions Lumbar Precautions Log Roll No Twisting Limit Bending Lifting Restriction of 10 lbs Gait Belt above Incisional Area Weight Bearing Status Weight Bearing Status Weight Bear as Tolerated M3 PT-IP Subjective Start: 04/28/19 08:13 Freq: NEEDED Status: Active Protocol: Document 04/29/19 09:30 GGD (Rec: 04/29/19 11:37 GGD [id number]) Subjective Physical Therapy Visit Type Type Treatment Note Visit Start Time 09:17 Visit Stop Time 09:33 Total Visit Minutes 16 Number of CUSTOMER SUPPORT ASSISTANT Visits 2 Physical Therapy Visit Comments Patient Comments Pt hopes to go home today. Therapy Pain Assessment Pain When Pain Assessed During Mobility Pain Present Pain Present Pain Reported Location Lower Back Intensity 2 Scale Used Numeric (1 - 10) M4 PT-IP Mobility and Gait Start: 04/28/19 08:13 Freq: NEEDED Status: Active Protocol: Document 04/29/19 09:30 GGD (Rec: 04/29/19 11:37 GGD [id number]) PT-Transfer Assessment Sit to and From Stand Sit to and from Stand Standby Assistance 1 Person Assistance Use of Upper Extremities Equipment Transfer Assistive Device Gait Belt Front Wheeled Walker Orthotic/Prosthetic Devices or Brace: No Transfers Transfer Destination Chair Transfer Ability Level of Assist Contact Guard Assistance 1 Person Assistance Gait Assessment Gait Gait Assistance Required: Standby Assistance Distance (Feet) 300 Able to Maintain Weight Bearing Status No During Gait Assistive Devices Assistive Device Gait Belt Front Wheeled Walker Orthotic/Prosthetic Devices or Brace: No Gait Deviations General Gait Pattern Decreased Stride Length Decreased Feet Clearance Factors Limiting Gait Function Factors Limiting Gait Function Decreased Activity Tolerance Decreased Strength Pain Stair Climbing Assessment Evaluation Level of Assist On Stairs Standby Assistance Contact Guard Assistance Devices Stair Climbing Assistive Devices Right Railing Technique/Endurance Stair Climbing Direction Ascend and Descend Stair Climbing Technique Step Over Step Number of Steps Climbed 3 Stair Climbing Set # Repetitions (reps) 2 M5 PT-IP Objective Assessments Start: 04/28/19 08:13 Freq: NEEDED Status: Active Protocol: Document 04/28/19 08:35 HH (Rec: 04/28/19 11:07 HH [id number]) Orientation Orientation/Cognition Level of Alertness Alert Orientation Name Age Birthday Month Date Year Day of Week Place Situation Language Function Ability No Deficits Noted Safety Awareness Understands Safety Issues Memory Description No Deficits Noted Gross Range of Motion Upper Extremity ROM Assessment Within Functional Limits Lower Extremity ROM Assessment Within Functional Limits Strength Upper Extremity Strength Assessment Within Functional Limits Comments Strength Comments 4/5 both LEs Coordination Assessment Gross Coordination Gross Coordination WNL Sensation Assessment Sensation Gross Sensation Left LE Impaired Light Touch Impaired Sensation Description Numbness Comments Sensation Comments numbness reported on L anterior quiroz and dorsum of the foot. Muscle Tone Muscle Tone WNL Yes M6 PT-IP Treatment Start: 04/28/19 08:13 Freq: NEEDED Status: Active Protocol: Document 04/29/19 09:30 GGD (Rec: 04/29/19 11:37 GGD [id number]) Physical Therapy Treatment Education Education Provided Precautions M7 PT-IP Assessment and Plan Start: 04/28/19 08:13 Freq: NEEDED Status: Active Protocol: Document 04/29/19 09:30 GGD (Rec: 04/29/19 11:37 GGD [id number]) PT Summary Assessment and Plan Summary Assessment Summary Pt improving with mobility. She was able to progress gait distance and pace. She was safe and stable with stair mobility. Pt safe for home D/C when medically stable. Frequency of Treatment Frequency Of Treatment Twice a Day Treatment Plan Physical Therapy Treatment Plan Bed Mobility Training Transfer Training Gait Training Therapeutic Exercise Balance Retraining Post Op Education Discharge Planning Hot or Cold Pack Neuromuscular Re-ed Recommendations To Nursing Amount of Assist Needed 1 Person Assist Discharge Recommendations PT Discharge Recommendations Home with Assistance
--- NOTE | 2019-04-29 09:53 | P.DS_ITS ---
History of Present Illness Date Patient Seen: 04/29/19 Time Patient Seen: 09:51 Chief complaint: [id number] L5-S1 TLIF Narrative: Pain mild. Denies fever chills. No nausea vomiting. She is up working with Physical therapy this morning. She is ready for discharge home. Discharge Providers Date of admission: 04/27/19 11:09 Discharge Date: 04/29/19 Primary care physician: Jazmin Santoyo MD Consults: 04/27/19 17:16 Consult to Occupational Therapy Evaluate & Treat Comment: Physician Instructions: Evaluate and treat Consult to Physical Therapy Evaluate & Treat Comment: Physician Instructions: Evaluate and Treat Discharge provider: Eduardo Gómez PA-C Summary Discharge Diagnosis: Lumbar stenosis with radiculopathy Morbid obesity with BMI greater than 40 Post-op diagnosis: same Procedure & Clinicians Procedure: L5S1 TLIF (post/post innerbody fusion) with cage L5S1 laminectomy L5S1 screws icbg Hospital Course: [age] year old female with intractable pain from lumbar stenosis. They had failed conservative management and requested operative intervention. Risks and benefits of surgery were discussed and appropriate consents were obtained. Surgeon: Johnnie Salazar Consulting Senior Practice Director: Norma Ahumada Anesthesia Type: General Operative Notes Findings: None Closure Type: primary Specimen(s): none sent Prosthetic devices, grafts, tissues, transplants, or devices: NuVasive MAS Reline screws Globus Rise cage Applied: catheter Estimated Blood Loss (mL): 20 Blood products transfused: none Patient admitted for the above-mentioned procedure. Patient consented to the same. Patient taken operating room underwent lumbar surgery. She is back in her room recovering well as in stable condition. Status at Discharge Cognitive/behavioral status at discharge: at baseline, oriented Functional status at discharge: uses cane/walker Overall status at discharge: patient is progressing back to baseline Time Spent with Patient Less than 30 minutes Exam Vital Signs (past 8 hours): - 04/29/19 03:02 04/29/19 08:00 Temperature 98.5 F 98.8 F Pulse Rate 75 82 Respiratory Rate 18 14 Blood Pressure 109/56 L 122/63 Pulse Oximetry 95 96 Oxygen Delivery Method Room Air Oxygen Flow Rate 0 Narrative Exam Narrative: Pleasant female working with physical therapy in her room. Walking with walker for assistance. Mild drainage left dressing otherwise clean, dry and intact. Objective Labs Result Diagrams: 04/28/19 06:22 Discharge Plan Discharge Plan Patient Disposition: Home Discharge Med Rec/Prescriptions Prescriptions: New hydrocodone-acetaminophen 5-325 mg Tablet 1 tab PO Q4HR PRN (Reason: Pain, Moderate (4-6)) Qty: 60 RF: 0 Continued phenytoin sodium extended 300 MG capsule 300 mg PO BID Qty: 0 RF: 0 levetiracetam [Keppra] 500 MG tablet 500 mg PO BID Qty: 0 RF: 0 lisinopril 20 MG tablet 20 mg PO QDAY Qty: 0 RF: 0 hydrochlorothiazide 25 MG tablet 25 mg PO QDAY Qty: 0 RF: 0 acetaminophen 500 MG tablet 500 mg PO PRN PRN (Reason: Pain) Qty: 0 RF: 0 Follow up/Referrals: Jazmin Santoyo MD [Primary Care Provider] - Provider Discharge Instructions Diet: Diet as Tolerated Activity: Limit bending, twisting, lifting Cold/Heat Therapy: ice as needed Skin/Wound/Dressing Care Report to your healthcare provider any signs of infection, such as:: chills, fever, increased pain, unusual drainage and unusual redness Dressing: keep clean and dry Visit Report/Discharge Packet Instructions: How to Prevent Falls, DI for Postoperative Pain, DI for Transforaminal Lumbar Interbody Fusion Discharge Data Primary Care Provider: Jazmin Santoyo Attending Provider: Johnnie Salazar Admit Date/Time: 04/27/19 11:09 Quality VTE Deep Vein Thrombosis/Pulmonary Embolism Present on Admission: No
--- NOTE | 2019-04-29 10:43 | OT.IP.TRT ---
Current Diagnoses Morbid (severe) obesity due to excess calories (04/27/19) Spinal stenosis, lumbar region with neurogenic claudication (04/27/19) Strain of muscle, fascia and tendon of lower back, subsequent encounter (04/27/19) Surgery Performed Operation Date: 04/27/19 13:15 Actual Procedures p L5S1 laminectomy and instrumented fusion bone graft - Johnnie Salazar MD Occupational Therapy Treatment Note M3 OT- IP Subjective and Pain Start: 04/28/19 16:18 Freq: Status: Active Protocol: Document 04/29/19 10:43 PJM (Rec: 04/29/19 16:07 PJM [id number]) OT- Subjective Occupational Therapy Visit Type Type Treatment Note Visit Start Time 09:28 Visit Stop Time 10:43 Total Visit Minutes 75 Occupational Therapy Visit Comments Patient Comments A shower would feel really good. 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 OT Pain Assessment Pain When Pain Assessed After Treatment Pain Present Pain Present Pain Reported Location Lower Back Intensity 2 Scale Used Numeric (1 - 10) Description Aching Acute Pain Behaviors Guarding Management Techniques Apply Cold Distraction Re-positioning Timing of Activity with Medications M4 OT- IP ADL's Start: 04/28/19 16:18 Freq: Status: Active Protocol: Document 04/29/19 10:43 PJM (Rec: 04/29/19 16:07 PJM [id number]) OT [id number] General Evaluation Self-Feeding Ability Independent OT ADL-Grooming General Evaluation Grooming Ability Independent Comments OT Grooming Comments standing at sink after education re: body mechanics OT ADL-Oral Care General Eval Oral Care Ability Independent Comments Oral Care Comments standing at sink after education re: body mechanics OT ADL-Dressing General Eval Upper Body Dressing Ability Independent Lower Body Dressing Ability Standby Assistance Minimal Assistance Areas Needing Assistance Pull-Over Shirt Pants/Shorts Shoes Assistive Devices Dressing Assistive Devices Web User Experience Strategist Comments OT Dressing Comments Pt modified indep donning underpants with internal audit director after education, she declines sock aid as she rarely wears socks, min assist with slip on shoes due to tight fit. Pt will order internal audit director on line. OT ADL-Toileting General Evaluation Toileting Ability Minimal Assistance Areas Needing Assistance Perform Perineal Hygiene Devices Toileting Assistive Devices Toilet Paper Aid Comments OT Toileting Comments Pt indep with clothing management but needs min assist with wiping after alessandro care due to body size. Provided education and resources re: toilet paper aids and pt will order one on line. OT ADL-Bathing Bathing Type Bathing Type Shower General Evaluation Bathing Ability Minimal Assistance Areas Needing Assistance Retrieving/Setting Up Items Wash/Dry Upper Body Wash/Dry Lower Extremities Devices Bathing Equipment Long Handled Sponge or Teller Vault Held Shower Sprayer Shower Chair without Arms Grab Bars Comments OT Bathing Comments Pt stood for 10+ min in shower , sat for drying. Pt will be more indep with use of long handled sponge which she will obtain on line. can also assist PRN. Performs slowly and carefully. M6 OT- IP Functional Cognition Start: 04/28/19 16:18 Freq: Status: Active Protocol: Document 04/29/19 10:43 PJM (Rec: 04/29/19 16:07 PJ [id number]) Cognitive Factors Limiting Selfcare Function Cognitive Ability Level of Alertness Alert Attention Span Ability Capable of Focused Attention Capable of Sustained Attention Memory Description No Deficits Noted Safety Awareness No Deficits Noted Problem Solving Ability No deficits Noted Executive Function Ability No Deficits Noted Cognitive Comments Cognitive Assessment Comments Pt verbalizes and demonstrates good understanding of all lumbar spine precautions. Pt distracts self with conversation at times. M7 OT- IP Mobility and Balance Start: 04/28/19 16:18 Freq: Status: Active Protocol: Document 04/29/19 10:43 PJM (Rec: 04/29/19 16:07 PJM [id number]) OT-Transfer Assessment Sit to and From Stand Sit to and from Stand Independent Transfers Transfer Ability Independent Standby Assistance Technique Transfer Destination Car Chair Shower Stall Transfer Technique Stand Step Pivot Devices Transfer Assistive Devices Front Wheeled Walker Comments Mobility Comments Pt needs SBA for shower stall transfer, modif indep with chair transfer with FWW. will provide SBA assist for car transfer. Education re: technique provided. OT- Gait Assessment Gait Gait Assistance Required: Standby Assistance Distance (Feet) 35 Assistive Devices Assistive Device Gait Belt Front Wheeled Walker OT- Balance Assessment Sitting Balance and Reactions Static Sitting Balance Ability Good Dynamic Sitting Balance Ability Good Standing Balance and Reactions Static Standing Balance Ability Good Dynamic Standing Balance Ability Good Comments Other Balance Tests/Deviations/Treatment during dressing, toileting and : standing shower M9 OT- IP Assessment and Plan Start: 04/28/19 16:18 Freq: Status: Active Protocol: Document 04/29/19 10:43 MARIA VICTORIA (Rec: 04/29/19 16:07 MARIA VICTORIA [id number]) OT Summary Assessment and Plan Potential Rehabilitation Potential Excellent Summary Progress Towards Goals Safe For Discharge Goals Met Assessment Summary All OT goals achieved for this admission as described above. Pt performs slowly and carefully. Pt will d/c home today with 24 hr assist from capable . Frequency of Treatment Frequency Of Treatment Discharge Discharge Recommendations OT Discharge Recommendations Home with 24/7 Assist Home Equipment Needs internal audit director, long bath sponge, toilet paper aid
--- NOTE | 2019-04-29 11:11 | CM.DPC ---
DCP: continued: pt has been ok'd for d/c to home by ortho CHITO Gómez. Case discussed in Team Rounds and AVIS Villareal reports no concerns from therapy standpoint. P: home today as per pt's plan.
--- NOTE | 2019-04-29 13:54 | PC.NURSE ---
Day Shift- Lower back dressing changed to coversite by another RN, Jayne Lewis RN coordinator around 1100 after pt had shower with OT. Gisselle prescription rec'd but not signed by PA. Called orthopedics office, Dr. Vee present at [address] [place] [address] office and will sign prescription. Pt and her aware to take prescription to office to have signed by Physician prior to having filled. Discharge summary packet reviewed with pt, her , and done by Jayne Lewis RN coordinator. Pt left unit at 1340 via wheelchair with all belongings with her present to drive her home. Escorted by LIAM.
== END 2019-04-29 13:40 | disposition home or self-care (01) | DRG 454 ==
PROVIDERS: Admitting Provider Orthopaedic Surgery; PCP Family Medicine; Visit Provider Orthopaedic Surgery
PROC: 0SG30AJ Fusion of Lumbosacral Joint with Interbody Fusion Device, Posterior Approach, Anterior Column, Open Approach (ICD-10-PCS; principal; 2019-04-27 13:15)
DX: M48.062 Spinal stenosis, lumbar region with neurogenic claudication (principal); Z68.41 Body mass index [BMI] 40.0-44.9, adult; E66.01 Morbid (severe) obesity due to excess calories; G40.909 Epilepsy, unspecified, not intractable, without status epilepticus; I10 Essential (primary) hypertension
CPT/HCPCS: 36415; 72100; 76000; 85014; 85018; 97116; 97161; 97165; 97530; 97535; C1776; C9290; J0330; J0595; J0690; J1100; J1170; J2250; J2274; J2405; J2704; J3010

== ENCOUNTER → 2020-05-02 09:34 | Outpatient (CLI) | payer OTHER, SELFPAY ==
[2019-04-27 17:26] VITALS: BMI 41.4
== END ==
PROVIDERS: Referring Provider Family Medicine; Visit Provider Family Medicine
DX: Z78.0 Asymptomatic menopausal state (principal); R29.890 Loss of height; R56.9 Unspecified convulsions; Z79.899 Other long term (current) drug therapy
CPT/HCPCS: 77080

== ENCOUNTER → 2020-05-24 17:19 | Outpatient (CLI) | payer OTHER, SELFPAY ==
[2019-04-27 17:26] VITALS: BMI 41.4
--- NOTE | 2020-05-24 17:36 | DI.MG.S_ITS ---
Patient Name: SAGAR CARROLL date: 1965 Sex: F Attending Physician: Yarelis Indications: Date: 05/24/2020 17:27 At the request of: HUDSON DYE Procedure: MM screening mammo BI BILATERAL DIGITAL SCREENING MAMMOGRAM 3D/2D WITH CAD: 05/24/2020 CLINICAL: Routine screening. Family history of breast cancer. Comparison is made to exams dated: 05/14/2018 mammogram, 03/10/2017 mammogram, and 06/09/2015 mammogram - outside location. There are scattered fibroglandular elements in both breasts. Current study was also evaluated with a Computer Aided Detection (CAD) system. There is a biopsy clip in the left breast. No significant masses, calcifications, or other findings are seen in either breast. There has been no significant interval change. IMPRESSION: NEGATIVE There is no mammographic evidence of malignancy. A 1 year screening mammogram is recommended. This exam was interpreted at Station ID: [id number]. NOTE: For mammograms, a report in lay terms will be sent to the patient. Approximately 15% of breast malignancies will not be visualized mammographically. In the management of a palpable breast mass, a negative mammogram must not discourage biopsy of a clinically suspicious lesion. Electronically Signed By: Leora marquez/sadia:05/25/2020 09:59:19 letter sent: Normal Exam ACR BI-RADS Category 1: Negative [id number]
== END ==
PROVIDERS: Referring Provider Family Medicine; Visit Provider Family Medicine
DX: Z12.31 Encounter for screening mammogram for malignant neoplasm of breast (principal); Z80.3 Family history of malignant neoplasm of breast
CPT/HCPCS: 77063; 77067

== ENCOUNTER → 2021-08-24 11:04 | Outpatient (CLI) | payer OTHER, SELFPAY ==
[2019-04-27 17:26] VITALS: BMI 41.4
--- NOTE | 2021-08-24 | DI.MG.S_ITS ---
BILATERAL DIGITAL SCREENING MAMMOGRAM 3D/2D WITH CAD: 08/24/2021 CLINICAL: Routine screening. Family history of breast cancer. Comparison is made to exams dated: 05/24/2020 mammogram - [facility] and 09/22/2013 mammogram - outside location. There are scattered fibroglandular elements in both breasts. Current study was also evaluated with a Computer Aided Detection (CAD) system. There is a biopsy clip in the left breast. No significant masses, calcifications, or other findings are seen in either breast. There has been no significant interval change. IMPRESSION: NEGATIVE There is no mammographic evidence of malignancy. A 1 year screening mammogram is recommended. This exam was interpreted at Station ID: [id number]. NOTE: For mammograms, a report in lay terms will be sent to the patient. Approximately 15% of breast malignancies will not be visualized mammographically. In the management of a palpable breast mass, a negative mammogram must not discourage biopsy of a clinically suspicious lesion. Electronically Signed By: Sotero valadez/sadia:08/24/2021 15:04:57 letter sent: Normal Exam ACR BI-RADS Category 1: Negative [id number]
== END ==
PROVIDERS: PCP Internal Medicine; Referring Provider Internal Medicine; Visit Provider Internal Medicine
DX: Z12.31 Encounter for screening mammogram for malignant neoplasm of breast (principal); Z80.3 Family history of malignant neoplasm of breast
CPT/HCPCS: 77063; 77067

== ENCOUNTER → 2022-08-20 16:14 | Outpatient (CLI) | payer OTHER, SELFPAY ==
[2019-04-27 17:26] VITALS: BMI 41.4
--- NOTE | 2022-08-20 | DI.MRI.S_ITS ---
PROCEDURE: MR HIP RT W CON INDICATIONS: rt hip pain TECHNIQUE: After the administration of 10 mL of dilute intra-articular Gadolinium contrast, coronal STIR of the bony pelvis; coronal and oblique axial T1 spin echo with fat saturation, axial T2 fast spin echo with fat saturation, sagittal T1 spin echo with and without fat saturation of the involved hip. COMPARISON: [facility], MR, HIP WITH CONTRAST, 11/21/2017, 15:20. FINDINGS: Image quality: Excellent. Bones and joints: Symmetric appearing [id number] bilateral hip joint osteoarthritic changes are seen with superior joint space narrowing and subchondral sclerosis. There is no intraosseous lesions or fractures. No avascular necrosis of the femoral head. The visualized lower lumbar spine appears normally aligned. The ligamental, neck, and labral plicae appear normal where visualized. Tendons and ligaments: Tendinosis and low-grade partial-thickness tear involving distal right gluteus medius tendon at its insertion on greater trochanter is seen extending to musculotendinous junction. Distal right gluteus minimus tendinosis at its insertion on greater trochanter is also seen. The nearby proximal iliotibial band also appears intact. The iliopsoas tendon appears intact, without adjacent bursal fluid collections or evidence for impingement syndrome. The origin of the hamstring tendon is intact at the ischial tuberosity, as well as the associated sacrotuberous ligament. The straight and reflected heads of the rectus femoris muscle origin appear intact, as well as the conjoint tendon. The ligamentum teres appears intact where visualized. Labrum and cartilage: Thinning of articulating cartilages of right femoral head is seen. There is also contour irregularity, signal abnormality and contrast extension in superior anterior labrum at 1 to 2 o'clock position suggestive of superior anterior labral tear. No paralabral cysts. The alpha angle of the femur is within normal limits at less than 55 degrees. Soft tissues: Visualized muscles demonstrate normal bulk and internal signal. Quadratus femoris muscle demonstrates no internal edema to suggest ischiofemoral impingement. The proximal sciatic neurovascular bundle appears normal adjacent to the hamstring tendons. No free pelvic fluid. Bladder wall thickness is normal. Genitourinary structures and bowel loops appear normal where visualized. Bulky appearing uterus with multiple uterine fibroids are again seen more pronounced since 2018 study. IMPRESSION: 1. [id number] bilateral hip joint osteoarthritis. No hip fracture or dislocation. No evidence of avascular necrosis of femoral head. 2. Suggestion of superior anterior right hip labral tear at 1 to 2 o'clock position. 3. Tendinosis and low-grade partial-thickness tear involving distal right gluteus medius tendon extending to musculotendinous junction. Distal right gluteus minimus tendinosis at its insertion on greater trochanter. No other muscle or tendon signal abnormalities. 4. Bulky appearing uterus with multiple uterine fibroids. Dictated by: Davis Morris M.D. on 08/21/2022 at 8:59 Approved by: Davis Morris M.D. on 08/21/2022 at 9:03
== END ==
PROVIDERS: PCP Internal Medicine; Referring Provider Nurse Practitioner Family; Visit Provider Nurse Practitioner Family
DX: M16.0 Bilateral primary osteoarthritis of hip (principal); S76.011A Strain of muscle, fascia and tendon of right hip, initial encounter; M25.551 Pain in right hip; D25.9 Leiomyoma of uterus, unspecified
CPT/HCPCS: 73722

== ENCOUNTER 2022-09-19 17:58 | Emergency (ER) | payer OTHER, SELFPAY ==
[2019-04-27 17:26] VITALS: BMI 41.4
[2022-09-19 18:25] VITALS: BP 150/84; PULSE 77; RESP 20; TEMP 36.7; O2SAT 100; BMI 38.7
--- NOTE | 2022-09-19 19:23 | ED_ITS ---
HPI - General Adult General Chief complaint: Ear Stated complaint: Ear cartilage infection, Seeking antibiotics Time Seen by Provider: 09/19/22 19:08 Source: patient and family () Mode of arrival: Family Vehicle Limitations: no limitations History of Present Illness HPI narrative: Patient is a 56-year-old female who a couple days ago started to have some fullness in her right ear and difficulty hearing and also some discomfort to the right side of her neck and congestion of the right side of her face and right- sided sore throat. She went to her primary doctor's office today. She was told that she had an infection of the outer portion of the ear. Her primary doctor prescribed her antibiotics but the pharmacy was closed. Apparently during this visit the redness seem to worsen and the primary doctor talk to an ENT doctor who advised that she come to the emergency department. Patient states she was told to come for IV antibiotics. Related Data Home Medications Medication Instructions Recorded Confirmed acetaminophen 500 mg tablet 500 mg PO PRN PRN Pain ##0 03/04/17 04/27/19 hydrochlorothiazide 25 mg tablet 25 mg PO QDAY ##0 03/04/17 04/27/19 levetiracetam 500 mg tablet 500 mg PO BID Seizures ##0 03/04/17 04/27/19 (Keppra) lisinopril 20 mg tablet 20 mg PO QDAY ##0 03/04/17 04/27/19 phenytoin sodium extended 300 mg 300 mg PO BID Seizures r/t brain 03/04/17 04/27/19 capsule aneury ##0 Previous Rx's Medication Instructions Recorded hydrocodone 5 mg-acetaminophen 325 1 tab PO Q4HR PRN Pain, Moderate 04/29/19 mg tablet (4-6) #60 tabs Allergies Allergy/AdvReac Type Severity Reaction Status Date / Time latex [LATEX] Allergy Severe RASH, SOB, Verified 09/19/22 18:25 EYES SWOLLEN Review of Systems Eyes Eyes: Reports system reviewed and no additional complaints, except as documented ENT Ears, Nose, Mouth, and Throat: Reports system reviewed and no additional complaints, except as documented Integumentary/Breasts Skin/Breast: Reports system reviewed and no additional complaints, except as documented Patient History Medical History Arthritis BCC (basal cell carcinoma) Brain aneurysm (~05/2003) HTN (hypertension) Left hip pain Seizures Stroke (~2002) Thyroid cyst (~03/2019) Surgical History H/O right wrist surgery History of bilateral tubal ligation History of History of right cataract extraction (~09/2017) Hx of craniotomy (~06/2003) Social History household members: spouse and children Smoking Status: Never smoker alcohol intake: current Smoking Status: Never smoker alcohol intake frequency: a few times a month Substance Use Type: does not use Exam Initial Vital Signs Initial Vital Signs: Vital Signs Temperature 98.1 F 09/19/22 18:25 Pulse Rate 77 09/19/22 18:25 Respiratory Rate 20 09/19/22 18:25 Blood Pressure 150/84 H 09/19/22 18:25 Pulse Oximetry 100 09/19/22 18:25 Oxygen Delivery Method 09/19/22 18:25 Const General: cooperative, comfortable and No ill appearing HENMT Head: normal to inspection and normocephalic Ears: hearing grossly normal bilaterally, external ears normal, TM normal on the left, EAC's normal, mastoids normal and TM abnormal bulging on the right; not on the left, dull on the right; not on the left, wth effusion serous on the right; not on the left and with fluid behind the TM on the right; not on the left; not erythematous Mouth: oral mucosae normal and moist mucous membranes Throat: posterior oropharynx normal Neck Lymphatic: No lymphadenopathy Resp Effort & Inspection: normal respiratory effort Skin General: no rashes or lesions noted Neuro General: patient alert and patient awake Course Vital Signs Vital signs: Vital Signs - 8 hr 09/19/22 18:25 09/19/22 19:53 Temperature 98.1 F 97.4 F L Pulse Rate 77 74 Respiratory Rate 20 16 Blood Pressure 150/84 H 134/72 Pulse Oximetry 100 98 Oxygen Delivery Method Room Air Nasal Cannula Medical Decision Making MDM Narrative Medical decision making narrative: Patient has no redness of the external ear on the right. No signs of cellulitis. Mastoid is unremarkable. The external auditory canal is normal. She does have fluid behind the right tympanic membrane but it is not erythematous. She is complaining of right-sided nasal congestion. Oropharynx is unremarkable. Suspect viral upper respiratory infection. No indication for antibiotics. No indication for IV antibiotics. We did discuss the use of antihistamines/decongestants to try to help with the serous otitis media. She was given return precautions and follow-up instructions. She expressed understanding and agreement. Discharge Plan Departure Patient Disposition: Home Clinical Impression: Upper respiratory infection, Acute serous otitis media of right ear Instructions: DI for Viral Upper Respiratory Infection -- Adult Activity Restrictions/Additional Instructions: Continue to take all of your medications as directed. Do recommend that you hold on any antibiotics for now as it appears that the redness your right ear has resolved. There does not appear to be any infection of the ear. You do have fluid buildup behind the right ear. There is no signs of these infected today. Recommend that you start on an antihistamine such as Claritin or Zyrtec. You could also try Afrin as a nasal spray or Flonase or Nasonex. All these medications can be purchased [id number]. Return to the emergency department for any new or worsening symptoms. Prescriptions: No Action phenytoin sodium extended 300 MG capsule 300 mg PO BID Qty: 0 levetiracetam [Keppra] 500 MG tablet 500 mg PO BID Qty: 0 lisinopril 20 MG tablet 20 mg PO QDAY Qty: 0 hydrochlorothiazide 25 MG tablet 25 mg PO QDAY Qty: 0 acetaminophen 500 MG tablet 500 mg PO PRN PRN (Reason: Pain) Qty: 0 hydrocodone-acetaminophen 5-325 mg Tablet 1 tab PO Q4HR PRN (Reason: Pain, Moderate (4-6)) Qty: 60 0RF Referrals: Dawna Gould MD [Primary Care Provider] - Stand Alone Forms: Patient Portal/API
[2022-09-19 19:53] VITALS: BP 134/72; PULSE 74; RESP 16; TEMP 36.3; O2SAT 98
== END 2022-09-19 19:54 | disposition home or self-care (01) ==
PROVIDERS: Emergency Provider Emergency Medicine; PCP Internal Medicine
DX: J06.9 Acute upper respiratory infection, unspecified (principal); H66.91 Otitis media, unspecified, right ear; M54.2 Cervicalgia
CPT/HCPCS: 99281

== ENCOUNTER → 2023-06-27 17:09 | Outpatient (CLI) | payer OTHER, SELFPAY ==
[2019-04-27 17:26] VITALS: BMI 41.4
--- NOTE | 2023-06-27 17:10 | DI.MRI.S_ITS ---
PROCEDURE: MR BRAIN (IAC) WWO CON INDICATIONS: Sensorineural hearing loss, Right side TECHNIQUE: Noncontrast sagittal T1 spin echo, axial FLAIR, axial gradient echo, axial diffusion and ADC through the brain. Axial thin-slice 3D CISS, coronal TruFISP, axial T1 spin echo with fat saturation through the internal auditory canals. After the administration of contrast, thin slice axial and coronal T1 spin echo with fat saturation through the internal auditory canals, and axial and coronal and sagittal T1 spin echo with fat saturation through the brain. COMPARISON: None. FINDINGS: Image quality: Diagnostic, with note made of motion artifact. There is artifact associated with the metallic hardware. Cerebellopontine angles: No cerebellopontine angle masses. Inner ear structures appear normally formed. No suspicious enhancement in the internal auditory canal or along the course of the 7th cranial nerve. CSF spaces: Ventricles are normal in size and shape. No extra-axial fluid collections. Basal cisterns are patent. Brain: Postoperative change can be seen involving the right perisylvian fissure region, with volume loss and encephalomalacia. There is a right-sided aneurysm clip present. No intracranial bleeds or mass effects. [place]-white matter interface is intact. No abnormal intracranial enhancement. Diffusion weighted images demonstrate no acute ischemic insults. Brainstem appears normal. Normal intravascular flow voids are present. Skull and face: Right-sided craniotomy change can be seen. Calvarial marrow signal is normal. Orbits appear normal. A right-sided lens replacement is noted. Sinuses: Sinuses and mastoids are clear. IMPRESSION: No significant abnormality is seen. Specifically, no masses or abnormal enhancement are seen within the cerebellopontine angle cisterns or within the internal auditory canals. Additional findings: Postoperative change, with right-sided aneurysm clip Dictated by: Bharat Soto M.D. on 06/27/2023 at 17:53 Approved by: Bharat Soto M.D. on 06/27/2023 at 17:56
== END ==
PROVIDERS: PCP Internal Medicine; Referring Provider Otolaryngology; Visit Provider Otolaryngology
DX: H90.3 Sensorineural hearing loss, bilateral (principal); H91.21 Sudden idiopathic hearing loss, right ear; Z98.890 Other specified postprocedural states
CPT/HCPCS: 70553; A9579

== ENCOUNTER → 2024-03-08 07:47 | Outpatient (CLI) | payer OTHER, SELFPAY ==
[2019-04-27 17:26] VITALS: BMI 41.4
--- NOTE | 2024-03-08 | PATH_ITS ---
Note [facility] Accession Number: [id number] TESTS RESULT FLAG UNITS REF RANGE LAB Clinician Provided Cytology Information No. of containers..01 Other (Miscellaneous) No. of containers..02 Previously Prepared Cytology Slide Source: THYROID NODULE 2 (A) DIAGNOSIS: THYROID NODULE #2 (A), FINE NEEDLE ASPIRATION. NEGATIVE FOR MALIGNANT CELLS. ADEQUATE FOR EVALUATION. COLLOID AND FOLLICULAR GROUPS ARE PRESENT. FAVOR BENIGN FOLLICULAR (GOITEROUS) NODULE ([place] CATEGORY II), SEE COMMENT. COMMENT: MICROSCOPIC EXAMINATION REVEALS A HYPO/MILDLY CELLULAR ASPIRATE, COMPOSED OF FEW FOLLICULAR GROUPS (>6 GROUPS THAT ARE REQUIRED FOR ADEQUACY), COLLOID AND NUMEROUS BACKGROUND MACROPHAGES SUGGESTIVE OF CYSTIC/DEGENERATIVE CHANGES. THESE FINDINGS FAVOR A BENIGN FOLLICULAR (GOITEROUS) NODULE. HOWEVER, SINCE THIS ASPIRATE IS MILDLY CELLULAR, IT MAY NOT BE BASKET MAKER OF THE PATIENT'S LESION. CORRELATION WITH CLINICAL AND RADIOGRAPHIC FINDINGS IS RECOMMENDED TO ENSURE THAT THE LESION HAS BEEN ADEQUATELY SAMPLED. ACCORDING TO THE [place] REPORTING SYSTEM FOR THYROID CYTOPATHOLOGY, THE RISK OF MALIGNANCY IN THE CATEGORY BENIGN-CATEGORY II IS 0-3%; THEREFORE RECOMMEND CONTINUED ULTRASOUND SURVEILLANCE WITH REPEAT FNA IF THE NODULE SIGNIFICANTLY INCREASES IN SIZE. Pathologist ICD10: 01 E04.2 Signed out by: Mark Ba MD, Pathologist NPI- [id number] Performed by: Mayank Gordon, Se[employer]less Hosiery Knitter ([facility]) Gross description: 01 30 CC, COLORLESS, CLEAR RECIEVED: IN CYTOLYT WITH 6 ALCOHOL FIXED AND 6 QUICK STAINED SLIDES ALSO 1 RNA VIAL WILL ON 09-02-2025.VO /VDU 03/09/2024 0718 Local FLAG LEGEND: L-Low Normal,H-High Normal,LL-Alert Low,HH-Alert High <-Panic Low,>-Panic High,A-Abnormal,AA-Critical Abnormal Performed at: [address] [address], [place] [address] Jakob Colbert MD, Performed at: [address] [address], [place], [place] [id number] MD Jakob Colbert MD Phone: [phone]
--- NOTE | 2024-03-08 | PATH_ITS ---
Note [facility] Accession Number: [id number] TESTS RESULT FLAG UNITS REF RANGE LAB Clinician Provided Cytology Information No. of containers..01 Other (Miscellaneous) No. of containers..02 Previously Prepared Cytology Slide Source: THYROID NODULE 3 (B) DIAGNOSIS: 01 THYROID NODULE #3 (B), FINE NEEDLE ASPIRATION. NEGATIVE FOR MALIGNANT CELLS. ADEQUATE FOR EVALUATION. FOLLICULAR GROUPS ARE PRESENT. BENIGN FOLLICULAR (GOITEROUS) NODULE ([place]DA CATEGORY II), SEE COMMENT. COMMENT: MICROSCOPIC EXAMINATION REVEALS A MILDLY CELLULAR ASPIRATE, COMPOSED OF COLLOID AND FOLLICULAR GROUPS WITHOUT SIGNIFICANT CYTOLOGIC OR ARCHITECTURAL ATYPIA. THESE FINDINGS SUPPORT A BENIGN FOLLICULAR (GOITEROUS) NODULE. CORRELATION WITH CLINICAL AND RADIOGRAPHIC FINDINGS IS RECOMMENDED. ACCORDING TO THE [place] REPORTING SYSTEM FOR THYROID CYTOPATHOLOGY, THE RISK OF MALIGNANCY IN THE CATEGORY BENIGN-CATEGORY II IS 0-3%; THEREFORE RECOMMEND CONTINUED ULTRASOUND SURVEILLANCE WITH REPEAT FNA IF THE NODULE SIGNIFICANTLY INCREASES IN SIZE. Pathologist ICD10: 01 E04.2 Signed out by: Chapis Ba MD, Pathologist NPI- [id number] Performed by: Chapis Gordon, Data Modeler ([facility]) Gross description: 01 30 CC, PINK, CLEAR RECIEVED: IN CYTOLYT WITH 6 ALCOHOL FIXED AND 6 QUICK STAINED SLIDES ALSO 1 RNA VIAL WILL ON 09-02-2025.VO /VDU 03/09/2024 0719 Local FLAG LEGEND: L-Low Normal,H-High Normal,LL-Alert Low,HH-Alert High <-Panic Low,>-Panic High,A-Abnormal,AA-Critical Abnormal Performed at: [address], [place] [address] Jakob Colbert MD, Specimen Comment: [id number] Performed at: [address], [place], [place] [id number] MD Jakob Colbert MD Phone: [phone]
--- NOTE | 2024-03-08 07:49 | DI.US.S_ITS ---
PROCEDURE: US FINE NEEDLE ASPIRATION INDICATIONS: Nontoxic multinodular goiter TECHNIQUE: The indications, alternatives, benefits, risks, and complications of the procedure were explained to the patient. Written informed consent was obtained and placed in the chart. The area of interest was examined sonographically and a site was chosen for ultrasound guided percutaneous sampling. The skin was prepared and draped in the usual fashion, and anesthetized with 1% lidocaine infiltrated from the skin down to the lesion. Multiple passes were then performed, with contents emptied into an appropriate pathology specimen container. A bandage was applied to the area of access at completion of the study. COMPARISON: None. FINDINGS: Location(s) of lesion(s) sampled: Left superior and inferior [place]: 25 gauge hypodermic needles. Number of passes: 6 per lesion Medications: 1% lidocaine for local anaesthesia. Complications: None. IMPRESSION: Successful ultrasound-guided thyroid fine needle aspiration, with cytology results pending. Dictated by: Jen Talbot M.D. on 03/08/2024 at 15:59 Approved by: Jen Talbot M.D. on 03/08/2024 at 15:59
== END ==
PROVIDERS: Referring Provider Otolaryngology; Visit Provider Otolaryngology
DX: E04.2 Nontoxic multinodular goiter (principal)
CPT/HCPCS: 10005; 10006

== ENCOUNTER 2024-08-04 07:13 | Day surgery (SDC) | payer OTHER, SELFPAY ==
[2019-04-27 17:26] VITALS: BMI 41.4
[2024-07-30 08:31] VITALS: BMI 38.4
[2024-08-04] VITALS (16 sets, daily range): BP systolic 125–148; BP diastolic 76–94; PULSE 68–82; RESP 12–19; TEMP 35.9–36.3; O2SAT 95–98; BMI 38.7
--- NOTE | 2024-08-04 | DI.RAD.S_ITS ---
PROCEDURE: XR FOOT LT 2V INDICATIONS: FLATFOOT DEFORMITY, FUSION TECHNIQUE: 4 digital views of the foot ankle were submitted from the OR COMPARISON: None. FINDINGS: Bones: There are no osseous abnormalities. Tibiotalar and talocalcaneal joints: Arthrodesis across the talocalcaneal , calcaneocuboid and talonavicular joint appreciated. All relations appear to be anatomic. Soft tissues: No soft tissue swelling, calcification or mass. IMPRESSION: Hindfoot arthrodesis changes. Anatomic alignment Dictated by: Silvestre Morrison M.D. on 08/05/2024 at 11:41 Approved by: Silvestre Morrison M.D. on 08/05/2024 at 11:42
[2024-08-04] MEDS: LACTATED RINGERS 1,000 ML 42 ML IV (08:04)
[2024-08-04] MEDS: ACETAMINOPHEN 325 MG TABLET 975 MG PO (08:04)
--- NOTE | 2024-08-04 08:15 | PM.PREOP ---
Pre-operative Note Interval Note History & Physical reviewed/Exam performed by Physician: Yes Changes to H&P: No
--- NOTE | 2024-08-04 08:45 | SUR.PREOP ---
Block start time [07] . Time out at 0715. Monitoring initiated and maintained throughout procedure. Oxygen and medications given per anesthesiologist instructions. Patient remained stable throughout procedure, no adverse reactions noted. Block end time [0741].
[2024-08-04] MEDS: CEFAZOLIN 2 GM/100 ML PREMIX 100 ML IV (09:09)
--- NOTE | 2024-08-04 09:29 | SUR.OPER ---
Supine on padded OR bed, head on pillow, arms secured on padded arm boards at <90 degrees abduction, safety belt across abdomen, tape over blanket over non op lower leg, bump under left hip
--- NOTE | 2024-08-04 10:27 | SUR.OPER ---
Supine on padded OR bed, head on pillow, arms secured on padded arm boards at <90 degrees abduction, safety belt abdomen, tape over blanket over non surgical leg. bump under left hip
[2024-08-04] MEDS: BUPIVACAINE 0.25% (PF) 30 ML, EPINEPHrine 0.15 MG INJ (12:00)
[2024-08-04] MEDS: OXYCODONE IR 5 MG TABLET PO (12:31)
[2024-08-04] MEDS: hydrOXYzine 50 MG/ML INJ 25 MG IM (12:31)
[2024-08-04] MEDS: ONDANSETRON 4 MG/2 ML INJ IV (12:47)
--- NOTE | 2024-08-04 14:02 | PM.OP.1 ---
Operative Date/Time/Diagnoses Date of procedure: 08/04/24 Time of procedure: 08:50 Pre-op diagnosis: Left hindfoot arthritis, left ankle contracture, left posterior tibialis insufficiency. Post-op diagnosis: same Procedure & Clinicians Procedure: 1. 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 She was failed conservative treatment has been indicated for hindfoot fusion was triple arthrodesis use of autograft or allograft bone and Achilles tendon lengthening as indicated. The risks and benefits of the procedure have been discussed with the patient and given the opportunity to ask questions. The risks of surgery include but are not limited to infection, malunion, nonunion, persistence of pain, damage to nerves and blood vessels, posttraumatic arthritis, DVT, PE, cardiopulmonary complications and . The patient expressed a thorough understanding of the risks and benefits of surgery and has elected to proceed. Consent was signed in the office today. Surgeon: Meghan Vee Click Yes if Unassisted: Yes Anesthesia Type: General, Peripheral nerve block and Local Operative Notes Findings: Rigid pes planovalgus extensive hindfoot arthritis large talonavicular spurs. Achilles contracture 0? of dorsiflexion with the knee extended no significant change with knee flexion. After [place] Achilles tendon lengthening dorsiflexion improved to approximately 15? with the knee extended Closure Type: primary Specimen(s): none sent Prosthetic devices, grafts, tissues, transplants, or devices: [place] 28 7.0 headed screws x2 [place] 28 5.5 headless screw x1 [place] 28 great white staple 18 x 18 [place] 28 great white staple 20 x 20 Estimated Blood Loss (mL): 50 Blood products transfused: none Tourniquet time (min): 100 Procedure in detail: Patient was seen in the preoperative area the site of surgery was marked informed consent confirmed. This was the left foot. The patient was brought to the operating room by the anesthesia team regional block was placed for postoperative pain control. Patient was positioned in the supine position with an ipsilateral thigh bump. A well-padded thigh tourniquet was applied. The left lower extremity was prepped and draped in standard sterile fashion a formal time-out procedure was performed confirming the patient's side and site of surgery administration of appropriate preoperative antibiotic all were in agreement. Attention turned to the left ankle the Achilles tightness was assessed there was an Achilles contracture. Decision was made for percutaneous Achilles lengthening. Achilles tendon lengthening. The leg was held elevated with the knee extended and dorsiflexion pressure placed on the foot. Three small incisions were made at 2 4 and 6 cm above the Achilles insertion and taken down directly midline in the center of the Achilles tendon 15 blade was used to create a [place] tenotomy with the distal and proximal to the lateral side and the middle incision to the medial side creating a triple howie section lengthening. Once this was achieved dorsiflexion stretch was completed resulting in a palpable stretch and increased dorsiflexion to approximately 15? with the knee extended. Once this was completed attention was turned back to the foot. The [place] was used for exsanguination the tourniquet elevated to the thigh to 250 mm of mercury. Was elevated proximally an hour and 20 minutes and then became a venous tourniquet and was released for the remainder of the case. C-arm was brought in incisions were marked out on the skin including the sinus tarsi approach from the tip of the fibula to the 4th metatarsal base angling across the calcaneocuboid joint as well. Second incision was made dorsally at the dorsal medial approach to the talonavicular joint between the tibialis anterior EHL. In the dorsal medial approach to the talonavicular joint this was carefully dissected down to the joint there were large dorsal bone spurs at the talus and navicular these were removed with a rongeur. Once this was completed and the joint was mobilized attention was then turned to the sinus tarsi incision which was opened in the standard fashion with suppressive dissection down into the sinus tarsi. The EDP was reflected distally. Sinus tarsi and the subtalar joint as well as the calcaneocuboid joint were exposed. Care was taken to retract the sural nerve posteriorly. Once the 3 joints were exposed a combination of osteotomes and curette was used to prepare the joints remove any remaining cartilage. In the subtalar joint care was taken to get all the way over medially to visualize the FHL. Once the dissection was completed and there was good cancellous bleeding bone this was then finished with the bur and the preparation fenestration drill and then the fish scale. This was completed for all 3 joints at this point reduction and fixation was started. The subtalar joint was addressed 1st. This was reduced correcting the excessive hindfoot valgus and then pinned from dorsal to plantar through the dorsomedial incision. The pin trajectory was checked on the lateral and axial planes this was then overdrilled countersunk and a long thread 7.0 headed screw was applied. Next a parallel screw plantar to dorsal from the calcaneus into the talus was then advanced checked on multiplanar fluoroscopy overdrilled and then applied in the standard fashion and countersunk. This secured the subtalar joint and corrected the excessive hindfoot valgus. And attention was turned to the talonavicular joint with joint was reduced and provisionally pinned with K-wires. A 5.5 headless screw from the paragon set was then applied across the medial talonavicular joint and dorsally an 18 x 18 great white staple was used for the lateral fixation. Then attention was turned to the calcaneocuboid joint this was provisionally pinned and then secured with a 20 x 20 compressive paragon staple. Once this was completed final fluoroscopy was completed with axial lateral AP foot and AP ankle x-rays confirming appropriate hardware alignment and placement. No additional surgery was needed. The foot was plantigrade. And alignment neutral. 2.5 cc of allograft bone was packed into any defects around the talonavicular joint sinus tarsi and calcaneocuboid joint. Deep tissue was closed with 2-0 Vicryl. Subcutaneous with 4-0 Monocryl and the skin with 2-0 and 3-0 and 4-0 nylon suture. Once this was completed additional 20 cc of 0.25% Marcaine with epinephrine was injected for local anesthesia. Sterile dressing was applied with Xeroform gauze Webril ABD pad bulky Marte cotton and a posterior and U splint. The patient was awoken from anesthesia and taken to recovery area in good condition there were no immediate complications from this procedure. Counts were correct. Complications: none Post-operative Condition: stable Disposition: PACU Plan for aftercare: Nonweightbearing left lower extremity 8-12 weeks. Aspirin for DVT prophylaxis Follow up in Orthopedic Clinic in 3-[address] weeks[address]utures remain in place minimum 3-4 weeks.
== END 2024-08-04 14:12 | disposition home or self-care (01) ==
PROVIDERS: PCP Nurse Practitioner Family; Referring Provider Orthopaedic Surgery Foot and Ankle Surgery; Visit Provider Orthopaedic Surgery Foot and Ankle Surgery
PROC: (CPT 27870; principal; 2024-08-04 08:45)
PROC: (CPT 27685; 2024-08-04 08:45)
DX: M19.072 Primary osteoarthritis, left ankle and foot (principal); M76.822 Posterior tibial tendinitis, left leg; M24.572 Contracture, left ankle; G89.18 Other acute postprocedural pain
CPT/HCPCS: 28715; 27606; 64450; 73620; 76000; C1713; J0171; J0330; J0690; J1100; J1171; J2250; J2405; J2704; J3010; J3410

== ENCOUNTER → 2025-08-31 11:26 | Outpatient (CLI) | payer OTHER, SELFPAY ==
[2019-04-27 17:26] VITALS: BMI 41.4
--- NOTE | 2025-08-31 11:28 | DI.MG.S_ITS ---
MM screening mammo BI: 08/31/2025. BI-RADS: 2 CLINICAL: 59-year old female for bilateral screening mammogram. Tyrer-Cuzick lifetime risk of 21.9%. Current reported family history of breast cancer: sister. The patient had prior bilateral breast biopsies. PRIOR EXAMS 08/24/2021, 05/24/2020, 05/14/2018. MAMMOGRAPHY TECHNIQUE: 2D and 3D (tomosynthesis) digital mammographic views obtained, with additional images as needed for full coverage. Current study was also evaluated with a Computer Aided Detection (CAD) system. DENSITY B. There are scattered areas of fibroglandular density. MAMMOGRAPHY FINDINGS Bilateral: Biopsy markers present. There are no suspicious masses, calcifications, or other findings in the breast. IMPRESSION: * No evidence of malignancy with benign findings. RECOMMENDATIONS Bilateral * According to the Tyrer-Cuzick Risk Assessment Model, based on the information provided your patient has a greater than 20% lifetime risk for developing breast cancer. Consider supplemental screening with breast MRI and participation in a high risk screening program. * Annual screening mammography. OVERALL ASSESSMENT CATEGORY BI-RADS-2: Benign. The [employer] recommends annual screening mammography beginning at age 40 for women with average risk of breast cancer. ELECTRONICALLY SIGNED: Minerva Díaz M.D. on 08/31/2025 at 06:05:16 PM PT Interpreting Station ID: [id number]
== END ==
LOC: MAMMO 11:27
DX: Z12.31 Encounter for screening mammogram for malignant neoplasm of breast (principal); Z80.3 Family history of malignant neoplasm of breast
CPT/HCPCS: 77063; 77067

== ENCOUNTER → 2025-08-31 11:28 | Outpatient (CLI) | payer OTHER, SELFPAY ==
[2019-04-27 17:26] VITALS: BMI 41.4
--- NOTE | 2025-08-31 11:29 | DI.RAD.S_ITS ---
PROCEDURE: XR DEXA AXIAL SKELETON INDICATIONS: SCREENING COMPARISON: None. FINDINGS: Lumbar Spine: Bone mineral density 0.978 g/cm2, T score -0.4, prior T-score 0.1, decreased. Left Femoral Neck: Bone mineral density is 0.713 g/cm2, T score -1.2. Prior T- score -0.6, decreased. Left Hip: Bone mineral density 0.898 g/cm2, T score -0.4, prior T-score 0.7, decreased. Left Forearm: Bone mineral density 0.638 g/cm2, T score -0.9. Fracture Risk Calculation (when applicable): 10-year fracture risk of a major osteoporotic fracture 6.7 percent and of a hip fracture 0.4 percent. (T score greater or equal to -1.0 to: NORMAL) (T score from -1.1 to -2.4: OSTEOPENIA) (T score less than or equal to -2.5: OSTEOPOROSIS) IMPRESSION: Osteopenia: Consider a repeat DEXA in 2-3 years to reassess this patient's status, or if there is a new clinical indication. There has been overall decrease in bone density as compared to prior DEXA scan 05/02/2020. Follow-up guidelines as follows: Osteoporosis: Consider a repeat DEXA and Vertebral Fracture Assessment (VFA) exam in 2 years or sooner if medically necessary, to reassess this patient's status. Osteopenia: Consider a repeat DEXA in 2-3 years to reassess this patient's status, or if there is a new clinical indication. Normal: Consider a repeat DEXA in 5 years or sooner, or if there is a new clinical indication. All treatment decisions require clinical judgment and consideration of individual patient factors, including patient preferences, comorbidities, previous drug use, risk factors not captured in the FRAX model (e.g., frailty, falls, vitamin D deficiency, increased bone turnover, interval significant decline in bone density ) and possible under- or over-estimation of fracture risk by FRAX. In addition, the NOF Guide recommends that FDA-approved medical therapies be considered in postmenopausal women and men age >= 50 years with a: * Hip or vertebral (clinical or morphometric) fracture * T-score of <=-2.5 at the spine or hip * Ten-year fracture probability by FRAX of >= 3% for hip fracture or >=20% for major osteoporotic fracture. Dictated by: Yessi SERRANO Interpreted: Jen Talbot MD on 08/31/2025 at 13:20 Transcribed by: JUN on 08/31/2025 at 13:23 Approved by: Jen Talbot M.D. on 09/02/2025 at 7:53
== END ==
LOC: RAD 11:28
DX: M85.852 Other specified disorders of bone density and structure, left thigh (principal); N95.9 Unspecified menopausal and perimenopausal disorder; Z51.81 Encounter for therapeutic drug level monitoring
CPT/HCPCS: 77080

== ENCOUNTER 2025-09-02 15:54 | Emergency (ER) | payer OTHER, SELFPAY ==
[2019-04-27 17:26] VITALS: BMI 41.4
--- OUTSIDE RECORDS SUMMARY | 2025-09-02 15:57 | XMS_ITS | Encounter Summary ---
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 Social History Tobacco Use Types Packs/Day Years Used Date Smoking Tobacco: Never Passive Smoke Exposure: Never Smokeless Tobacco: Never Alcohol Use Standard Drinks/Week Comments Yes 0 (1 standard drink = 0.6 oz pur e alcohol) AUDIT-C Answer Date Recorded Frequency of Alcohol Consumption Never 06/01/2019 Average Number of Drinks Not on file 019 Frequency of Binge Drinking Not on file 05/16 Comments Unknown Sex and Gender Information Value Date Recorded Sex Assigned at Not on file Legal Sex Female 7:22 PM PDT Gender Identity Not on file Sexual Orientation Not on file documented as of this encounter Plan of Treatment Not on file documented as of this encounter Procedures Procedure Name Priority Date/Time Associated Diagnosis Comments MR IAC WITH/WITHOUT CONTRAST Routine 06/27/2023 Sensorineural hearing loss (SNHL) of both ears 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
[2025-09-02 16:04] VITALS: BP 182/96; PULSE 86; RESP 16; TEMP 36; O2SAT 98; BMI 38.7
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
== END 2025-09-02 16:29 | disposition home or self-care (01) ==
PROVIDERS: Emergency Provider Emergency Medicine
DX: S43.491A Other sprain of right shoulder joint, initial encounter (principal); S50.11XA Contusion of right forearm, initial encounter; R03.0 Elevated blood-pressure reading, without diagnosis of hypertension; Y04.0XXA Assault by unarmed brawl or fight, initial encounter
CPT/HCPCS: 99281